=== PATIENT | female | born 1965 | race Caucasian/White ===

== ENCOUNTER 2018-07-25 07:53 | Outpatient (CLI) | payer OTHER | END 2018-07-25 07:57 | disposition home or self-care (01) | LOC: SONOGRAMA 07:53 | DX: M75.41 Impingement syndrome of right shoulder (principal) ==

== ENCOUNTER → 2018-11-08 | Outpatient (CLI) | payer OTHER | END | disposition home or self-care (01) | LOC: RAD 07:23 | DX: Z12.31 Encounter for screening mammogram for malignant neoplasm of breast (principal); M54.5 Low back pain | CPT/HCPCS: 72158 ==

== ENCOUNTER 2022-11-13 09:51 | Outpatient (CLI) | payer OTHER | END 2022-11-13 09:55 | disposition home or self-care (01) | LOC: RX STUDY 09:51 | PROVIDERS: ATTEND General Practice | DX: R13.10 Dysphagia, unspecified (principal) ==